=== PATIENT | female | born 1970 | race Caucasian/White ===

== ENCOUNTER → 2019-03-01 | Outpatient (CLI) | payer BC ==
[~2019-03-01] MED LIST: Diatrizoate Meglumine/Diatrizoate Sodium 37% 30 ML Bottle PO ONE; Iopamidol 755 Mg/ML 100 ML Bottle IV ONE
--- NOTE | 2019-03-04 13:01 | CT ---
INDICATION: Right flank pain, right upper quadrant pain times one month. CT ABDOMEN AND PELVIS WITHOUT AND WITH CONTRAST WITH CT UROGRAM: Spiral 2.5 mm axial sections were obtained through the abdomen and pelvis, initially without contrast, 03/01/19 and then with 100 mL Isovue 370 at 2.8 mL/second with 90 second and 7 minute delays. These were obtained on 03/01/19 and are compared with 02/08/19. Total exam DLP = 3,284.48 mGy-cm. There is some minimal scarring at the left lung base. An active infiltrate or effusion was not identified. The heart is normal in size. No pericardial effusion was seen. No evidence of renal calcinosis was identified. No evidence of obstructive uropathy was identified. CT urogram showed normal course and caliber of the ureters with pyelocaliceal system showing no evidence of obstructive uropathy. There is no ureterectasis. There are multiple parapelvic cysts on the right with one on the left. The largest on the right is approximately 3 cm. It does not appear to be obstructing. No retroperitoneal mass was seen. There is some retroperitoneal lymphadenopathy, which is minimal and nonspecific. The appendix appeared normal, visualized on axial images #89 through #98. No evidence of free air or bowel obstruction was seen. A mild degree of sigmoid diverticulosis is noted without evidence of diverticulitis. The gallbladder is absent, compatible with history of its removal. The liver, pancreas, common bile duct, and adrenal glands appeared normal. The spleen appeared essentially normal, except to note a few punctate calcifications, compatible with previous histoplasmosis. The uterus is absent, compatible with history of its removal. The urinary bladder wall appears to be slightly thickened, which may be on the basis of cystitis and should be correlated clinically. The ovaries appear to be unremarkable. No additional mass lesions, organomegaly, or free fluid collections were identified in the abdomen or pelvis. IMPRESSION: 1. Thickening of the urinary bladder wall may represent cystitis - correlate clinically. 2. Post hysterectomy. 3. Post cholecystectomy. 4. Normal appendix. 5. Multiple parapelvic cysts in the kidneys, mostly on the right, with the largest on the right 3.3 cm. A few other tiny cysts are noted in the renal cortices. Report was called to Ginny Mosquera NP at 1613 hours on 03/01/19. [facility]
== END ==
LOC: FB.DI 12:51
PROVIDERS: ATTEND Nurse Practitioner Family
DX: R10.9 Unspecified abdominal pain (principal); R10.11 Right upper quadrant pain; N32.89 Other specified disorders of bladder; N28.1 Cyst of kidney, acquired; Z90.710 Acquired absence of both cervix and uterus; Z90.49 Acquired absence of other specified parts of digestive tract
CPT/HCPCS: 74178; Q9963; Q9967

== ENCOUNTER 2019-07-17 06:50 | Day surgery (SDC) | payer BC ==
[~2019-07-17 06:50] MED LIST changes: -Diatrizoate Meglumine/Diatrizoate Sodium 37% 30 ML Bottle PO ONE; -Iopamidol 755 Mg/ML 100 ML Bottle IV ONE; +Lactated Ringers 1,000 ML IV SCH; +Sodium Chloride 0.9% 10 ML Syringe FLUSH PRN
[2019-07-17] MEDS ORDERED: Lidocaine 2% 5 ML SDV INJECT ONE (06:51)
[2019-07-17] MEDS ORDERED: Midazolam 1 MG/ML 2 ML SDV IV ONE (06:51)
[2019-07-17] MEDS ORDERED: Propofol 200 MG/20 ML SDV IV ONE (06:51)
--- NOTE | 2019-07-17 08:12 | PCM.PN ---
- General Info Date of Service: 07/17/19 - Review of Systems Systems Review Comment:: 49-year-old female with history of recently identified guaiac positive stools and increasing symptoms of heartburn presents today for EGD and colonoscopy. She does also state that she has an uncle who had colon cancer. She is medically stable to proceed today. Her recent history and physical is reviewed and no significant changes are noted. I have discussed the proposed EGD and colonoscopy with the patient. Risks such as but not limited to bleeding and GI injury reviewed. She agrees to proceed. - Patient Data Vitals - Most Recent: Last Vital Signs Temp 97.9 F 07/17/19 07:16 Pulse 71 07/17/19 07:16 Resp 18 07/17/19 07:16 BP 122/82 07/17/19 07:16 Pulse Ox 97 07/17/19 07:16 Weight - Most Recent: 180 lb 3.6 oz Med Orders - Current: Current Medications Lactated Ringer's (Ringers, Lactated) 1,000 mls @ 125 mls/hr IV ASDIRECTED [facility] Last Admin: 07/17/19 07:33 Dose: 125 mls/hr Sodium Chloride (Saline Flush) 10 ml FLUSH ASDIRECTED PRN PRN Reason: Keep Vein Open Sepsis Event Note - Focused Exam Vital Signs: Vital Signs Temp Pulse Resp BP Pulse Ox 07/17/19 07:16 97.9 F 71 18 122/82 97 Date Exam was Performed: 07/17/19 Time Exam was Performed: 08:10 - Problem List Review Problem List Initiated/Reviewed/Updated: Yes - My Orders Last 24 Hours: My Active Orders 07/16/19 14:22 Resuscitation Status Routine 07/16/19 Dinner Nothing Per Oral Diet [DIET] 07/17/19 06:45 Patient Status [ADT] Routine Blood Glucose Check, Bedside [RC] ONETIME Patient to Empty Bladder [RC] ASDIRECTED Verify Patient Consent Obtain [RC] ASDIRECTED Lactated Ringers [Ringers, Lactated] 1,000 ml IV ASDIRECTED Sodium Chloride 0.9% [Saline Flush] 10 ml FLUSH ASDIRECTED PRN Peripheral IV Insertion Adult [OM.PC] Routine - Assessment Assessment:: Heartburn Guaiac positive stools - Plan Plan:: EGD and colonoscopy
--- NOTE | 2019-07-17 09:37 | PCM.OPNOTE ---
- General Post-Op/Procedure Note Date of Surgery/Procedure: 07/17/19 Operative Procedure(s): EGD with Biopsy. Colonoscopy with Polypectomy Findings: Normal appearing upper endoscopy Large Hepatic Flexure Polyp but otherwise normal colon Pre Op Diagnosis: Guiac + Stools. Heartburn Post-Op Diagnosis: Normal upper endoscopy. Colon Polyp Anesthesia Technique: MAC Primary Surgeon: Luiz Avalos Pathology: Biospies of Duodenum and Gastric Antrum Hepatic Flexure Polyp EBL in mLs: 4 Complications: None Condition: Good
--- NOTE | 2019-07-17 12:14 | OR ---
DATE OF OPERATION: 07/17/2019 SURGEON: Luiz Avalos MD PREOPERATIVE DIAGNOSES: Guaiac-positive stools and heartburn. POSTOPERATIVE DIAGNOSES: Normal upper endoscopy and hepatic flexure polyp. OPERATION PERFORMED: Esophagogastroduodenoscopy with biopsy and colonoscopy with polypectomy. INDICATIONS FOR SURGERY: This 49-year-old female was recently noted to have guaiac-positive stools. She has also been having increasing symptoms of heartburn and she comes for upper and lower endoscopy. FINDINGS: On upper endoscopy, the lining of the esophagus, stomach, and duodenum appeared normal. No visible inflammation or ulcers were seen. The anatomy appeared normal. On colonoscopy, the patient had a large sessile polyp at the hepatic flexure. This was approximately 1 x 1.5 cm in size. The remainder of the colon and terminal ileum appeared normal. PROCEDURE IN DETAIL: The patient was taken to the operating room. She was given intravenous sedation, and with her in the left lateral decubitus position, the Olympus gastroscope was advanced through a mouth guard into the oral cavity. Under direct visualization, the scope was then carefully advanced down through the oropharynx into the esophagus, and then on through the esophagus, stomach, and into the duodenum where examination to the fourth portion was performed. Because of the patient's symptoms, random biopsies of the duodenum were taken. After examining the duodenum, the scope was withdrawn into the stomach, where full examination including retroflexed examination of the fundus was performed. Random biopsies of the antrum were also taken to rule out H. pylori. The GE junction and esophagus were carefully re-examined as the scope was withdrawn. The scope was removed. Attention was turned to colonoscopy. Digital rectal exam was performed showing no rectal masses. The Olympus colonoscope was inserted into the rectum. Retroflexed examination of the rectal canal was performed. The scope was then carefully advanced under direct visualization through the entire length of the colon until the cecum was reached. The colon was somewhat tortuous and this did require hand pressure, but was able to be safely accomplished. Cecal acquisition was confirmed by noting the normal internal cecal anatomy including the appendiceal orifice and ileocecal valve. The ileocecal valve was cannulated and the terminal ileum examined. This area appeared normal. The scope was then slowly withdrawn back to the hepatic flexure, where the above described large polyp was identified. This was removed piecemeal with a cautery snare and retrieved into a polyp trap. It did appear that the entire polyp was removed and no evidence of complication was noted. The examination was then continued carefully re-examining the colonic segments until the entire colon and rectum had been fully examined. The scope was removed and the patient was taken from the operating room in satisfactory condition. ESTIMATED BLOOD LOSS: 4 mL. COMPLICATIONS: None. PROGNOSIS: Good. /[id number] CAT/JUAN
== END 2019-07-17 11:00 | disposition home or self-care (01) ==
LOC: FB.SDS 06:50
PROVIDERS: ATTEND Surgery
DX: D12.3 Benign neoplasm of transverse colon (principal); K29.50 Unspecified chronic gastritis without bleeding; Q43.8 Other specified congenital malformations of intestine; G44.209 Tension-type headache, unspecified, not intractable; E78.5 Hyperlipidemia, unspecified; E66.9 Obesity, unspecified; E11.9 Type 2 diabetes mellitus without complications; Z79.84 Long term (current) use of oral hypoglycemic drugs; Z68.32 Body mass index [BMI] 32.0-32.9, adult; Z88.8 Allergy status to other drugs, medicaments and biological substances; Z91.013 Allergy to seafood; Z91.010 Allergy to peanuts
CPT/HCPCS: 43239; 45385; 82962; 88305; 88342; J2001; J2250; J2704; J7120

== ENCOUNTER 2019-10-25 15:41 | Emergency (ER) | payer BC ==
[2019-10-25] MEDS ORDERED: Ketorolac 60 MG/2 ML SDV IM ONE (16:58)
[2019-10-25] MEDS ORDERED: Ondansetron 4 MG Tab.DIS PO ONE (16:58)
--- NOTE | 2019-10-25 17:12 | EDM.PDOC ---
ED HPI GENERAL MEDICAL PROBLEM - General Stated Complaint: ABD PAIN AND BLOATING Time Seen by Provider: 10/25/19 16:00 Source of Information: Reports: Patient History Limitations: Reports: No Limitations - History of Present Illness INITIAL COMMENTS - FREE TEXT/NARRATIVE: c/o cramping abd pain x 4-5m on a daily basis pt has had short-lived intermittent cramping pain at her flanks thinks her appendix is swollen and gets pain from "my appendix to my kidney", referring to RLQ to R flank no f/c/d, perhaps slight N today had colonoscopy ~5m ago here that pt reports was neg, done for screening and for current sxs works [employer], 5p-3a, has not missed worked firm [employer] ([employer]) qod, none today states she takes no meds for her sxs, no meds today except one antbx pill for bladder cystoscopy in [place] today with Dr Blair that was done "because of crystals in my urine", reports exam to have been neg prior abd surgery: choly, hysterectomy says she has been cramping on her right side since she woke up this AM, walks and moves without limitation - Related Data Allergies Allergy/AdvReac Type Severity Reaction Status Date / Time atorvastatin Allergy Nausea Verified 07/16/19 14:11 dapagliflozin [From Farxiga] Allergy Other Verified 07/16/19 14:11 metformin Allergy Nausea and Verified 07/16/19 14:11 Vomiting naproxen Allergy Hives Verified 07/16/19 14:11 peanut Allergy Wheezing Verified 07/16/19 14:11 shrimp Allergy Hives Verified 07/16/19 14:11 tree nut [Pecans] Allergy Wheezing Verified 07/16/19 14:11 Home Meds: Home Meds Dicyclomine HCl [Bentyl] 10 mg PO TID PRN #15 capsule 10/25/19 [Rx] polyethylene glycoL 3350 [Miralax] 17 gm PO DAILY #510 gm 10/25/19 [Rx] Past Medical History Cardiovascular History: Reports: High Cholesterol Other Genitourinary History: renal cyst Other Musculoskeletal History: hand tendonitis, lateral epicondylectomy of elbow, removal of knee cyst/ganglion Endocrine/Metabolic History: Reports: Diabetes, Type II, Obesity/BMI 30+ - Past Surgical History GI Surgical History: Reports: Cholecystectomy Female Surgical History: Reports: Hysterectomy Social & Family History - Caffeine Use Caffeine Use: Reports: Coffee, Tea ED ROS GENERAL - Review of Systems Review Of Systems: See Below Constitutional: Reports: No Symptoms HEENT: Reports: No Symptoms Respiratory: Reports: No Symptoms Cardiovascular: Reports: No Symptoms Endocrine: Reports: No Symptoms GI/Abdominal: Reports: Abdominal Pain, Constipation, Nausea, Other (cramps) : Reports: No Symptoms Musculoskeletal: Reports: No Symptoms Skin: Reports: No Symptoms Neurological: Reports: No Symptoms Psychiatric: Reports: No Symptoms Hematologic/Lymphatic: Reports: No Symptoms Immunologic: Reports: No Symptoms ED EXAM, GENERAL - Physical Exam Exam: See Below Exam Limited By: No Limitations General Appearance: Alert, WD/WN, No Apparent Distress, Other (alert, nonill, NAD) Nose: Normal Inspection, Normal Mucosa, No Blood Head: Atraumatic, Normocephalic Neck: Normal Inspection, Supple, Non-Tender, Full Range of Motion. No: Lymphadenopathy (R), Lymphadenopathy (L) Respiratory/Chest: No Respiratory Distress, Lungs Clear, Normal Breath Sounds, No Accessory Muscle Use, Chest Non-Tender Cardiovascular: Normal Peripheral Pulses, Regular Rate, Rhythm, No Edema, No Gallop, No JVD, No Murmur, No Rub GI/Abdominal: Normal Bowel Sounds, Soft, Non-Tender, No Organomegaly, No Distention, No Mass, Other (inc'd girth, ND, no point tender, very soft including flanks and RUQ, no CVAT b/l) Back Exam: Normal Inspection, Full Range of Motion. No: CVA Tenderness (R), CVA Tenderness (L) Extremities: Normal Inspection, Normal Range of Motion, Non-Tender, No Pedal Edema Neurological: Alert, Oriented, CN II-XII Intact, Normal Cognition, Normal Gait, No Motor/Sensory Deficits Psychiatric: Normal Affect Skin Exam: Warm, Dry, Intact, Normal Color, No Rash Lymphatic: No Adenopathy Course - Orders/Labs/Meds Labs: Laboratory Tests 10/25/19 10/25/19 10/25/19 Range/Units 17:05 17:05 17:05 WBC 7.6 (4.5-12.0) X10-3/uL RBC 4.73 (3.23-5.20) x10(6)uL Hgb 14.2 (11.5-15.5) g/dL Hct 42.4 (30.0-51.3) % MCV 89.5 (80-96) fL MCH 30.1 (27.7-33.6) pg MCHC 33.6 (32.2-35.4) g/dL RDW 12.0 (11.5-15.5) % Plt Count 193 (125-369) X10(3)uL MPV 9.3 (7.4-10.4) fL Neut % (Auto) 54.3 (46-82) % Lymph % (Auto) 35.2 (13-37) % [place] % (Auto) 5.1 (4-12) % Eos % (Auto) 5 (1.0-5.0) % Baso % (Auto) 1 (0-2) % Neut # (Auto) 4.1 (1.6-8.3) # Lymph # (Auto) 2.7 (0.6-5.0) # [place] # (Auto) 0.4 (0.0-1.3) # Eos # (Auto) 0.4 (0.0-0.8) # Baso # (Auto) 0.0 (0.0-0.2) # Sodium 140 (135-145) mmol/L Potassium 3.6 (3.5-5.3) mmol/L Chloride 102 (100-110) mmol/L Carbon Dioxide 27 (21-32) mmol/L BUN 11 (7-18) mg/dL Creatinine 0.8 (0.55-1.02) mg/dL Est Cr Clr Drug Dosing TNP Estimated GFR (MDRD) > 60 (>60) BUN/Creatinine Ratio 13.8 (9-20) Glucose 146 H (80-116) mg/dL Calcium 9.4 (8.6-10.2) mg/dL Total Bilirubin 0.3 (0.1-1.3) mg/dL AST 15 (5-25) IU/L ALT 40 H (12-36) U/L Alkaline Phosphatase 73 (56-112) IU/L C-Reactive Protein < 0.2 L (0.5-0.9) mg/dL Total Protein 7.9 (6.0-8.0) g/dL Albumin 3.8 (3.5-5.2) g/dL Globulin 4.1 g/dL Albumin/Globulin Ratio 0.9 Lipase 171 (73-393) U/L Meds: Medications Discontinued Medications Generic Name Dose Route Start Last Admin Trade Name Freq PRN Reason Stop Dose Admin Ketorolac Tromethamine 60 mg 10/25/19 16:58 10/25/19 17:06 Toradol IM 10/25/19 16:59 60 mg ONETIME ONE Administration Ondansetron HCl 4 mg 10/25/19 16:58 10/25/19 17:07 Zofran Odt PO 10/25/19 16:59 4 mg ONETIME ONE Administration Departure - Departure Time of Disposition: 18:34 Disposition: Home, Self-Care 01 Condition: Good Clinical Impression: Intestinal cramps - Discharge Information *PRESCRIPTION DRUG MONITORING PROGRAM REVIEWED*: Not Applicable *COPY OF PRESCRIPTION DRUG MONITORING REPORT IN PATIENT MICHELLE: Not Applicable Prescriptions: Dicyclomine HCl [Bentyl] 10 mg PO TID PRN #15 capsule PRN Reason: Cramping polyethylene glycoL 3350 [Miralax] 17 gm PO DAILY #510 gm Additional Instructions: For cramping, take dicyclomine 10 mg 1 tab every 8 hours as needed. To regulate your stools, take Miralax 17 grams on cereal or in 8 oz of fluids daily. For pain, take ibuprofen 200 mg 3 tabs every 6 hours. See your doctor in one week for further recommendations.
--- NOTE | 2019-10-25 17:40 | CR ---
INDICATION: Cramping at flanks, question constipation versus IBS. ABDOMEN, TWO-VIEW: Five images of the abdomen in supine and upright projections were obtained 10/25/19 - no comparison x-rays. The pattern of gas and feces is nonspecific without evidence of free air or obstruction. No organomegaly, mass lesions or nonvascular pathologic calcifications were noted. Multiple phleboliths are noted in the pelvis. Clips compatible with cholecystectomy are noted in the right upper quadrant. IMPRESSION: Nonacute postcholecystectomy abdomen. MTDD
== END 2019-10-25 18:45 | disposition home or self-care (01) ==
LOC: FB.ED 15:41
DX: R10.9 Unspecified abdominal pain (principal); E11.9 Type 2 diabetes mellitus without complications; E66.9 Obesity, unspecified; Z68.32 Body mass index [BMI] 32.0-32.9, adult; Z88.8 Allergy status to other drugs, medicaments and biological substances; Z91.010 Allergy to peanuts; Z91.018 Allergy to other foods; Z91.013 Allergy to seafood; Z79.899 Other long term (current) drug therapy; Z88.6 Allergy status to analgesic agent; Z90.49 Acquired absence of other specified parts of digestive tract; Z90.710 Acquired absence of both cervix and uterus
CPT/HCPCS: 36415; 74019; 80053; 83690; 85025; 86140; 96372; 99284; A9270-GY; J1885

== ENCOUNTER 2021-02-23 11:16 | Emergency (ER) | payer BC ==
--- NOTE | 2021-02-23 13:12 | EDM.PDOC ---
ED HPI GENERAL MEDICAL PROBLEM - General Chief Complaint: Headache Stated Complaint: COVID SHOT REACTION Time Seen by Provider: 02/23/21 11:20 Source of Information: Reports: Patient History Limitations: Reports: No Limitations - History of Present Illness INITIAL COMMENTS - FREE TEXT/NARRATIVE: Patient presented to the ED because of palpitations after the J/J Covid Vaccine booster. There is no chest pain, dyspnea, dizziness. No N/V/D. - Related Data Allergies Allergy/AdvReac Type Severity Reaction Status Date / Time atorvastatin Allergy Nausea Verified 07/16/19 14:11 dapagliflozin [From Farxiga] Allergy Other Verified 07/16/19 14:11 lisinopril Allergy Shortness Verified 02/23/21 11:49 of Breath metformin Allergy Nausea and Verified 07/16/19 14:11 Vomiting naproxen Allergy Hives Verified 07/16/19 14:11 peanut Allergy Wheezing Verified 07/16/19 14:11 shrimp Allergy Hives Verified 07/16/19 14:11 tree nut [Pecans] Allergy Wheezing Verified 07/16/19 14:11 Home Meds: Home Meds Dicyclomine HCl [Bentyl] 10 mg PO TID PRN #15 capsule 10/25/19 [Rx] polyethylene glycoL 3350 [Miralax] 17 gm PO DAILY #510 gm 10/25/19 [Rx] Past Medical History Cardiovascular History: Reports: High Cholesterol Other Genitourinary History: renal cyst Other Musculoskeletal History: hand tendonitis, lateral epicondylectomy of elbow, removal of knee cyst/ganglion Endocrine/Metabolic History: Reports: Diabetes, Type II, Obesity/BMI 30+ - Past Surgical History GI Surgical History: Reports: Cholecystectomy Female Surgical History: Reports: Hysterectomy Social & Family History - Family History Family Medical History: No Pertinent Family History - Caffeine Use Caffeine Use: Reports: Coffee, Tea ED ROS GENERAL - Review of Systems Review Of Systems: See Below Constitutional: Reports: No Symptoms HEENT: Reports: No Symptoms Respiratory: Reports: No Symptoms Cardiovascular: Reports: Palpitations Endocrine: Reports: No Symptoms GI/Abdominal: Reports: No Symptoms : Reports: No Symptoms Musculoskeletal: Reports: No Symptoms Skin: Reports: No Symptoms Neurological: Reports: No Symptoms ED EXAM, GENERAL - Physical Exam Exam: See Below Exam Limited By: No Limitations General Appearance: Alert, No Apparent Distress Eye Exam: Bilateral Eye: PERRL Ears: Normal External Exam, Normal Canal, Hearing Grossly Normal Nose: Normal Inspection, Normal Mucosa, No Blood Throat/Mouth: Normal Inspection, Normal Lips, Normal Teeth Head: Atraumatic, Normocephalic Neck: Normal Inspection, Supple, Non-Tender, Full Range of Motion Respiratory/Chest: No Respiratory Distress, Lungs Clear, Normal Breath Sounds, No Accessory Muscle Use, Chest Non-Tender Cardiovascular: Normal Peripheral Pulses, Regular Rate, Rhythm, No Edema, No Gallop, No JVD, No Murmur, No Rub GI/Abdominal: Normal Bowel Sounds, Soft, Non-Tender, No Organomegaly, No Distention, No Abnormal Bruit Back Exam: Normal Inspection, Full Range of Motion Extremities: Normal Inspection, Normal Range of Motion, Non-Tender, No Pedal Edema, Normal Capillary Refill Neurological: Alert, Oriented, CN II-XII Intact #1 Interpretation EKG Date: 02/23/21 Time: 12:10 Rhythm: NSR Rate (Beats/Min): 80 [place]: Normal P-Wave: Present QRS: Normal ST-T: Normal QT: Normal FL/PQ Interval: 171 Comparison: NA - No Prior EKG EKG Interpretation Comments: NSR Course - Vital Signs Text/Narrative:: Lab/EKG result was reviewed and discussed with patient Last Recorded V/S: Last Vital Signs Temp 36.5 C 02/23/21 13:49 Pulse 75 02/23/21 13:49 Resp 18 02/23/21 13:49 BP 148/90 H 02/23/21 13:49 Pulse Ox 99 02/23/21 13:49 - Orders/Labs/Meds Orders: Active Orders 24 hr Category Date Time Status EKG 12 Lead [EK] Routine Ther 02/23/21 11:53 Ordered Labs: Laboratory Tests 02/23/21 02/23/21 02/23/21 Range/Units 12:08 12:08 12:08 WBC 8.0 (3.0-10.3) x10-3/uL RBC 4.67 (3.60-5.20) x10(6)uL Hgb 14.0 (11.4-15.5) g/dL Hct 41.8 (34.2-48.2) % MCV 89.5 (76.7-100.5) fL MCH 29.9 (23.9-33.9) pg MCHC 33.4 (31.9-34.8) g/dL RDW 12.7 (12.3-16.5) % Plt Count 177 (151-488) x10(3)uL MPV 8.6 (7.1-12.4) fL Neut % (Auto) 55.0 (30.8-76.2) % Lymph % (Auto) 34.0 (18.4-52.1) % [place] % (Auto) 5.3 (4.4-15.7) % Eos % (Auto) 5.1 (0.6-8.1) % Baso % (Auto) 0.6 (0.2-1.5) % Neut # (Auto) 4.4 (1.5-6.3) x10-3/uL Lymph # (Auto) 2.7 (1.0-4.4) x10-3/uL [place] # (Auto) 0.4 (0.3-1.0) x10-3/uL Eos # (Auto) 0.4 (0.0-0.8) x10-3/uL Baso # (Auto) 0.0 (0.0-0.1) x10-3/uL Sodium 140 (135-145) mmol/L Potassium 3.7 (3.5-5.3) mmol/L Chloride 103 (100-110) mmol/L Carbon Dioxide 27 (21-32) mmol/L BUN 10 (7-18) mg/dL Creatinine 0.7 (0.55-1.02) mg/dL Est Cr Clr Drug Dosing TNP Estimated GFR (MDRD) > 60 (>60) BUN/Creatinine Ratio 14.3 (9-20) Glucose 170 H (80-116) mg/dL Calcium 8.5 L (8.6-10.2) mg/dL Total Bilirubin 0.5 (0.1-1.3) mg/dL AST 24 D (5-25) IU/L ALT 77 H D (12-36) U/L Alkaline Phosphatase 85 (56-112) IU/L Troponin I < 4.0 L (4.0-60.3) pg/mL Total Protein 7.3 (6.0-8.0) g/dL Albumin 3.5 (3.5-5.2) g/dL Globulin 3.8 g/dL Albumin/Globulin Ratio 0.9 Departure - Departure Time of Disposition: 13:15 Disposition: Home, Self-Care 01 Condition: Good Clinical Impression: Palpitations Instructions: Palpitations, [id number] Referrals: Gibson Degroot PA [Primary Care Provider] - Forms: ED Department Discharge Additional Instructions: Please read discharge instructions on palpitations Follow up with your doctor if your palpitations is becoming frequent and bothersome Sepsis Event Note (ED) - Focused Exam Vital Signs: Vital Signs Temp Pulse Resp BP Pulse Ox 02/23/21 13:49 36.5 C 75 18 148/90 H 99 02/23/21 11:16 36.6 C 94 18 142/84 H 96 - My Orders Last 24 Hours: My Active Orders 02/23/21 11:53 EKG 12 Lead [EK] Routine - Assessment/Plan Last 24 Hours: My Active Orders 02/23/21 11:53 EKG 12 Lead [EK] Routine
== END 2021-02-23 13:45 | disposition home or self-care (01) ==
LOC: FB.ED 11:16
DX: R00.2 Palpitations (principal); E11.9 Type 2 diabetes mellitus without complications; E66.9 Obesity, unspecified; Z68.36 Body mass index [BMI] 36.0-36.9, adult; Z88.8 Allergy status to other drugs, medicaments and biological substances; Z91.010 Allergy to peanuts; Z91.013 Allergy to seafood; Z91.018 Allergy to other foods
CPT/HCPCS: 36415; 80053; 84484; 85025; 93005; 99285-25